=== PATIENT | female | born 1945 | race Caucasian/White ===

== ENCOUNTER → 2017-12-05 | Emergency (ER) | payer OTHER ==
[~2017-12-05] VITALS: Ht 144.8 cm; Wt 38.6 kg
[~2017-12-05] MED LIST: ADULT ASPIRIN81 MG; OMEGA 3 1,0001 EACH
== END | disposition home or self-care (01) ==
LOC: ER 09:57
DX: L03.115 Cellulitis of right lower limb (principal)

== ENCOUNTER 2018-01-16 22:43 | Emergency (ER) | payer OTHER ==
[~2018-01-16] VITALS: Ht 157.5 cm; Wt 49.9 kg
[2018-01-16] MEDS ORDERED: LASIX20 MG (22:54)
[2018-01-17] MEDS ORDERED: PEPCID40 MG PO (06:22)
[2018-01-17] MEDS ORDERED: LEVSIN/SL0.125 MG SL (06:22)
[2018-01-17] MEDS ORDERED: ZOFRAN4 MG PO (06:22)
== END 2018-01-17 06:23 | disposition home or self-care (01) ==
LOC: ER 22:43
DX: K52.9 Noninfective gastroenteritis and colitis, unspecified (principal)